=== PATIENT | female | born 1975 ===

== ENCOUNTER 2018-11-14 03:59 | Outpatient (CLI) | payer SELFPAY ==
[2018-11-14 08:52] LABS: CHOL/HDL RATIO 2.22 (0.00-4.99)
[2018-11-14 08:56] LABS: HEMOGLOBIN A1C 5.2 % (4.5-6.2)
== END 2018-11-14 23:59 | disposition home or self-care (01) ==
LOC: HW HEART 03:59
DX: Z13.6 Encounter for screening for cardiovascular disorders (principal)
CPT/HCPCS: 36415; G0438